=== PATIENT | male | born 1975 | race Caucasian/White ===

== ENCOUNTER 2021-12-26 19:34 | Emergency (ER) | payer OTHER, SELFPAY ==
[2021-12-26] VITALS (10 sets, daily range): BP systolic 121–189; BP diastolic 79–85; PULSE 72–94; RESP 11–18; TEMP 36.6; O2SAT 99–100
--- NOTE | ~2021-12-26 | XR_ITS ---
EXAMINATION: XR chest 2V Exam Date/Time: 12/26/2021 20:10 CDT CLINICAL HISTORY: GENERALIZED CP/PALPATIONS,X1 YR,WORSE X2 DAYS Comparison: None available RESULT: Lines, tubes, and devices: None. Lungs and pleura: Clear. Cardiomediastinal silhouette: Normal cardiomediastinal silhouette. Other: No acute osseous or upper abdominal finding. IMPRESSION: No acute cardiopulmonary process. Reviewed, dictated and finalized at location K.
--- NOTE | 2021-12-26 19:55 | ECG_ITS ---
Measurements Intervals [place] Rate: 91 P: 84 AL: 131 QRS: 76 QRSD: 91 T: 58 QT: 344 QTc: 425 Interpretive Statements SINUS RHYTHM POSSIBLE RIGHT ATRIAL ENLARGEMENT [0.25mV P WAVE] NO PREVIOUS ECG AVAILABLE FOR COMPARISON Electronically Signed On 12-27-2021 14:18:37 CDT by Micaela Darby M.D.
--- NOTE | 2021-12-26 19:58 | ED.CHESTPAIN ---
HPI - Chest Pain General Chief Complaint: Chest Pain Stated Complaint: chest pain Time Seen by Provider: 12/26/21 19:54 History of Present Illness HPI narrative: 46-year-old male presents the emergency room with complaints of palpitations for over 18 months. Patient states palpitations last for 2 to 3 minutes, and usually occurs at night. Patient denies shortness of breath when he is experiencing the palpitations. Patient states that last night the palpitations lasted for several minutes, concerning him. Patient has not been evaluated for this. Patient also complains of snoring at night. Related Data Allergies Allergy/AdvReac Type Severity Reaction Status Date / Time No Known Allergies Allergy Verified 12/26/21 19:52 Review of Systems Review of Systems: CONSTITUTIONAL: Denies fever, chills, or sweats. EYES: Denies visual changes, redness, or discharge. ENT: Denies rhinorrhea, congestion, sore throat, or otalgia. CARDIOVASCULAR: Reports palpitations RESPIRATORY: Denies cough or dyspnea. GASTROINTESTINAL: Denies abdominal pain, nausea, vomiting, or diarrhea. GENITOURINARY: Denies dysuria or hematuria. SKIN: Denies rash or itching. MUSCULOSKELETAL: Denies back pain, joint pain, or myalgia. NEUROLOGIC: Denies headache, numbness, dizziness, or weakness. PSYCHIATRIC: Denies anxiety or depression. [facility] Family History Family History Father Family history of coronary artery disease Family history of type 2 diabetes mellitus Family history of heart disease in male family member before age 55 Social History Social History Smoking status: Never smoker Alcohol intake: current Exam Narrative: GENERAL: Well-appearing, well-nourished, and in no acute distress. HEAD: Normocephalic, atraumatic. EYES: PERRLA and EOMI. CHEST: Clear to auscultation. No respiratory distress. No wheezes rales or rhonchi HEART: Regular rate and rhythm. No murmur heard. Normal peripheral pulses. ABDOMEN: Soft, nontender, nondistended, normal active bowel sounds. EXTREMITIES: Normal range of motion. No edema. SKIN: Warm, dry, no rash. NEURO: No focal deficits. Alert and oriented x3. PSYCH: Normal mood and affect. Course Vital Signs Vital signs: Vital Signs Temperature 36.6 C 12/26/21 19:48 Pulse Rate 94 12/26/21 19:48 Respiratory Rate 16 12/26/21 19:48 Blood Pressure 189/79 H 12/26/21 19:48 Pulse Oximetry 100 12/26/21 19:48 Temperature 36.6 C 12/26/21 19:48 Pulse Rate 80 12/26/21 20:31 Respiratory Rate 12 12/26/21 20:31 Blood Pressure 153/85 H 12/26/21 20:30 Pulse Oximetry 100 12/26/21 20:31 MDM - Chest Pain MDM Narrative Medical decision making narrative: 46-year-old male presented to emergency room with nocturnal palpitations have been occurring for about 18 months. Patient states that he has been told that he snores. CBC and CMP were unremarkable, troponin was negative. Chest x-ray showed no acute cardiopulmonary process. EKG normal sinus with no ectopy. Will refer patient to cardiology for further evaluation and a possible sleep study. Lab Data Result diagrams: 12/26/21 20:07 12/26/21 20:07 Labs: Lab Results 12/26/21 12/26/21 12/26/21 Range/Units 20:07 20:07 20:07 WBC 10.2 H (4.5-10.0) K/mm3 RBC 4.93 (4.6-6.20) M/mm3 Hgb 16.7 (14.0-18.0) g/dL Hct 49.2 (42.0-52.0) % MCV 99.8 (80-100) fl MCH 33.9 (26-34) pg MCHC 33.9 (32-36) g/dl RDW 12.1 (11.5-14.5) % Plt Count 241 (150-375) k/mm3 MPV 9.9 (7.4-10.4) fl Immature Gran % (Auto) 0.5 (0-0.5) % Neut % (Auto) 44.4 L (45.5-73.1) % Lymph % (Auto) 42.4 (18.3-44.2) % [place] % (Auto) 8.8 H (2.6-8.5) % Eos % (Auto) 3.0 (0-4.4) % Baso % (Auto) 0.9 (0.2-1.2) % Lymph # (Auto) 4.34 H (0.9-3.2) K/mm3 [place] # (Auto) 0.9 H (0.1-0.6
[2021-12-26 20:14] LABS: Basophils Absolute Auto 0.1 K/mm3 (0.0-0.1); Basophils Percent Auto 0.9 % (0.2-1.2); Eosinophils Absolute Auto 0.3 K/mm3 (0-0.3); Hematocrit 49.2 % (42.0-52.0); Hemoglobin 16.7 g/dL (14.0-18.0); Immature Granulocyte Absolute 0.05 K/mm3 (0.00-0.031); Immature Granulocyte Percent A 0.5 % (0-0.5); Lymphocytes Absolute Auto 4.34 K/mm3 (0.9-3.2); Lymphocytes Percent Auto 42.4 % (18.3-44.2); Mean Corpuscular HGB Conc 33.9 g/dl (32-36); Mean Corpuscular Hemoglobin 33.9 pg (26-34); Mean Corpuscular Volume 99.8 fl (80-100); Mean Platelet Volume 9.9 fl (7.4-10.4); Monocytes Absolute Auto 0.9 K/mm3 (0.1-0.6); Monocytes Percent Auto 8.8 % (2.6-8.5); Neutrophils Absolute Auto 4.6 K/mm3 (1.3-6.7); Neutrophils Percent Auto 44.4 % (45.5-73.1); Platelet Count Result 241 k/mm3 (150-375); Red Blood Count 4.93 M/mm3 (4.6-6.20); Red Cell Distribution Width 12.1 % (11.5-14.5); White Blood Count 10.2 K/mm3 (4.5-10.0)
[2021-12-26 20:30] LABS: D Dimer 0.27 ug/mL (<0.48)
--- NOTE | 2021-12-26 20:32 | PC.NURSE ---
C/O CP FOR OVER A YEAR. REPORTS WHEN PAIN OCCURS IT DOESN'T LAST LONG BUT THIS AM BECAME CONCERNED BECAUSE HE FELT LIKE HEART WAS BEATING FAST. NO CP AT THIS TIME NO DISTRESS
[2021-12-26 20:35] LABS: Alanine Aminotransferase 15 U/L (4-50); Albumin Level 4.4 g/dL (3.5-5.1); Alkaline Phosphatase 55 U/L (38-126); Anion Gap 7 mmol/L (8-16); Aspartate Amino Transferase 28 U/L (17-59); Bilirubin,Total 0.4 mg/dL (0.2-1.3); Blood Urea Nitrogen 14 mg/dL (9-20); Calcium 8.6 mg/dL (8.4-10.2); Carbon Dioxide 27 mmol/L (22-30); Chloride 102 mmol/L (98-107); Estimated CRCL calculation 93 ml/min; Estimated Glomerular Filt Rate > 60; Glucose 113 mg/dL (65-110); Potassium 4.2 mmol/L (3.4-5.0); Sodium 136 mmol/L (137-145)
[2021-12-26 20:37] LABS: Troponin I < 0.012 ng/mL (0.000-0.034)
== END 2021-12-26 21:38 | disposition home or self-care (01) ==
PROVIDERS: Emergency Provider Nurse Practitioner Family
DX: R00.2 Palpitations (principal)
CPT/HCPCS: 36415; 71046; 80053; 84484; 85025; 85380; 93005; 99284